=== PATIENT | female | born 1945 | race Hispanic/Latino ===

== ENCOUNTER 2018-09-12 07:23 | Day surgery (SDC) | payer OTHER ==
[2018-09-08 15:42] LABS: Absolute Lymphocytes (CBC) 1.8 K/uL (0.7-4.9); Absolute Monocytes 0.5 K/uL (0.1-1.3); Absolute Neutrophil 6.7 K/uL (1.8-8.0); Basophils % 1.3 % (0-1.3); Eosinophils % 4.2 % (0-4.4); Hematocrit 38.4 % (36.0-45.0); MPV 9.9 fL (7.6-11.3); Monocytes % 5.3 % (3.3-12.3); RBC Red Blood Cell Count 4.44 M/uL (3.86-4.86)
[2018-09-08 15:48] LABS: Potassium 4.4 mmol/L (3.5-5.1)
--- NOTE | 2018-09-08 15:48 | RAD REPORT ---
EXAM DESCRIPTION: RAD - Chest Pa And Lat (2 Views) - 09/08/2018 3:28 pm CLINICAL HISTORY: preop Chest pain. COMPARISON: CHEST SINGLE VIEW dated 01/05/2014 FINDINGS: The lungs are clear. The heart is mildly enlarged in size. No displaced fractures. IMPRESSION: Mild cardiomegaly.
[2018-09-08 15:54] LABS: ALT/SGPT 26 U/L (12-78); AST/SGOT 12 U/L (15-37); Albumin 3.8 g/dL (3.4-5.0); Alkaline Phosphatase 109 U/L (45-117); Amylase Level 62 U/L (25-115); Bilirubin Direct < 0.1 mg/dL (0-0.2); Bilirubin Total 0.3 mg/dL (0.2-1.0); Lipase 111 U/L (73-393); Protein, Total 7.9 g/dL (6.4-8.2)
--- NOTE | 2018-09-09 08:29 | EKG ---
Test Date: 2018-09-08 Test Time: 14:30:36 Stacking Machine Operator: ANGELIKA MEASUREMENT RESULTS: Intervals: Rate: 67 AK: 120 QRSD: 132 QT: 442 QTc: 467 [place]: P: 43 AK: 120 QRS: 58 T: 30 INTERPRETIVE STATEMENTS: Normal sinus rhythm Right bundle branch block Abnormal ECG Compared to ECG 01/05/2014 03:26:36 Myocardial infarct finding no longer present Electronically Signed On 09-09-18 08:28:26 CDT by Michael Worrell
--- OUTSIDE RECORDS SUMMARY | 2018-09-12 07:26 | XMS REPORT ---
:1945 Author Organization [employer] Care Team Providers Name Role Phone Pastor Dias Provider Role Unavailable Allergies, Adverse Reactions, Alerts Substance Reaction Event Type N.K.D.A. Info Not Available Non Drug Allergy Problems Problem Type Condition Code Onset Dates Condition Status Assessment Left hand pain M79.642 Active Assessment Trigger finger, left middle finger M65.332 Active Medications Medication Code System Code Instructions Start End Date Status Dosage Date Polymyxin [facility] 82682-256 Active not defined B-Trimethoprim 3-11 Pravastatin [facility] 77586-509 Active not defined Sodium 0-10 Meloxicam [facility] 50747-203 Active not defined 6-23 Ilevro [facility] 22476-746 Active not defined 0-07 Metformin HCl [facility] 96145-970 Active not defined 8-01 PrednisoLONE [facility] 81807-200 Active not defined Acetate 4-05 Lisinopril-Hydroc [facility] 94572-697 Active not defined hlorothiazide 2-01 Results No Known Results Summary Purpose eClinicalWorks Submission
--- OUTSIDE RECORDS SUMMARY | 2018-09-12 07:26 | XMS REPORT ---
[...] Instructions Start End Date Status Dosage Date Ilevro [facility] 57288-162 Active not defined 0-07 PrednisoLONE [facility] 27954-941 Active not defined Acetate 4-05 Meloxicam [facility] 49386-188 Active not defined 6-23 Metformin HCl [facility] 16181-330 Active not defined 8-01 Polymyxin [facility] 46973-236 Active not defined B-Trimethoprim 3-11 Pravastatin [facility] 28786-970 Active not defined Sodium 0-10 Lisinopril-Hydroc [facility] 82232-732 Active not defined hlorothiazide 2-01 Results No Known Results Summary Purpose eClinicalWorks Submission
[2018-09-12] MEDS ORDERED: CEFOXITIN/SWI 1gm 1 GM/10 ML SYR ONE (07:53)
[2018-09-12] MEDS ORDERED: NA CHLORIDE 0.9% 1,000 ML ONE (07:53)
[2018-09-12] MEDS ORDERED: GLYCOPYRROLATE 0.2 MG/ML SYR ONE ×2 (08:11)
[2018-09-12] MEDS ORDERED: MIDAZOLAM HCL 2 MG/2 ML INJ ONE (08:11)
[2018-09-12] MEDS ORDERED: LIDOCAINE 2% MPF 5 ML VIAL ONE (08:11)
[2018-09-12] MEDS ORDERED: PROPOFOL 200 MG/20 ML VIAL IV ONE (08:11)
[2018-09-12] MEDS ORDERED: FENTANYL CITR 250 MCG/5 ML ONE (08:13)
[2018-09-12] MEDS ORDERED: ONDANSETRON 4 MG/2 ML VIAL ONE (08:44)
[2018-09-12] MEDS ORDERED: NEOSTIGMINE 1 MG/ML -10 ML VIAL ONE (08:59)
[2018-09-12] MEDS ORDERED: ROCURONIUM 50 MG/5 ML VIAL IV ONE (08:59)
[2018-09-12] MEDS ORDERED: Mastisol Adhesive Liq ONE (09:39)
[2018-09-12 10:16] VITALS: O2SAT 96
[2018-09-12 10:45] VITALS: BP 129/54; TEMP 97.2
[2018-09-12] MEDS ORDERED: CODEINE 30MG/APAP 300MG TAB ONE (10:48)
--- NOTE | 2018-09-27 23:31 | OP ---
Date of Procedure: 09/13/2018 Surgeon: Hay Dawson MD Deputy Building Guard: OLLIE [place]. Preoperative Diagnosis: Symptomatic cholelithiasis. Postoperative Diagnosis: Symptomatic cholelithiasis. Procedure: Laparoscopic cholecystectomy. Anesthesia: General plus local. Specimen: Gallbladder. Indications: This is the case of a female who comes to us with above diagnosis. Fully explained the benefits, alternatives, and risks of laparoscopic, possible open cholecystectomy, which include but are not limited to infection, bleeding, damage to adjacent structures, anesthesia complication, milton docholithiasis, bile leak, pancreatitis, MA, and even . She also understands this may not relie ve any symptoms and she might need more than one surgical intervention. She understood, signed a con sent. Description Of Procedure: The patient was brought to the operating room, placed in supine position. Anesthesia was done without complication. Abdominal area was prepped and draped in a sterile fashio n. Marcaine 0.5% was injected for local anesthetic, followed by sharp incision of the skin in the in fraumbilical region. Incision was carried down to fascia, which was opened under direct vision. Per itoneum was encountered, opened under direct vision. Vicryl #1 placed inside the fascia. Tony tro car was carefully introduced. Pneumoperitoneum was obtained. I placed 3 more trocars, 5 mm each one of them, 1 in the epigastric area and 2 in the right upper quadrant using the same technique under d irect visualization. At that moment, I proceeded to put a grasper on the fundus of the gallbladder, another grasper in the infundibulum, and retracted the gallbladder in the inferolateral fashion expos ing the triangle of Calot and obtaining critical view of safety. The cystic duct and cystic artery w ere clearly isolated, free circumferentially, and a connection between those and the gallbladder was clearly identified. I proceeded to ligate those by using at least 3 clips proximal, 1 clip distal, l igation in middle. Same was done with the cystic artery. No bile leak. No bleeding. The gallbladd er was removed from liver using Bovie cauterizer and removed from the abdominal cavity using EndoCatc h through the umbilical incision. The area was inspected once again. No bile leak. No bleeding. A t that moment, I proceeded to remove the trocars under direct vision. Deflated the pneumoperitoneum. Closed the fascia with #1 Vicryl. Irrigated the subcutaneous tissue, closed with 3-0 chromic, and skin was approximated. Sponge count and instrument counts were correct. The patient tolerated the p rocedure well. The patient was sent to recovery in stable condition. GAIL/JUNIOR Voice ID: [id number] Report ID: [id number]
--- NOTE | 2018-09-27 23:36 | DS ---
Date of Discharge: 09/12/2018 Diagnosis: Symptomatic cholelithiasis. Procedure: Laparoscopic cholecystectomy. Disposition: Home. Activity: As tolerated. No heavy lifting. Followup: Follow up in my office 1 week. Call for appointment on [phone]. Keep area dry for 48 ho urs, then may shower. Medications: For medications, see orders. GAIL/JUNIOR Voice ID: [id number] Report ID: [id number]
== END 2018-09-12 11:50 | disposition home or self-care (01) ==
LOC: OR 07:23
PROVIDERS: ATTEND Surgery
PROC: 0FT44ZZ Resection of Gallbladder, Percutaneous Endoscopic Approach (ICD-10-PCS; principal; 2018-09-12 08:30)
DX: K80.20 Calculus of gallbladder without cholecystitis without obstruction (principal); E11.9 Type 2 diabetes mellitus without complications; I10 Essential (primary) hypertension; Z79.4 Long term (current) use of insulin; Z79.1 Long term (current) use of non-steroidal anti-inflammatories (NSAID); Z79.899 Other long term (current) drug therapy
CPT/HCPCS: 47562; 93005; 85025; 80048; 36415; 82150; 82962 ×2; 80076; 88304; 83690; 71046; J2704; J2710; J2250; J3010; J7030; J2405

== ENCOUNTER 2020-12-09 06:44 | Day surgery (SDC) | payer OTHER ==
[2020-12-05 12:57] LABS: Absolute Lymphocytes (CBC) 2.2 K/uL (0.7-4.9); Basophils % 0.3 % (0-1.3); Hematocrit 35.3 % (36.0-45.0); Lymphocytes % 23.8 % (15.3-44.8); MPV 8.5 fL (7.6-11.3); RBC Red Blood Cell Count 4.11 M/uL (3.86-4.86)
[2020-12-05 13:00] LABS: Protime INR 0.93
--- NOTE | 2020-12-05 13:08 | RAD REPORT ---
EXAM DESCRIPTION: RAD - Chest Pa And Lat (2 Views) - 12/05/2020 12:56 pm CLINICAL HISTORY: preop, pending cardiac catheterization COMPARISON: September 2019 TECHNIQUE: Frontal and lateral views of the chest were obtained. FINDINGS: The lungs are fibrotic with the interstitial pattern matching comparison imaging. No new o r enlarging mass. No acute infiltrate. Hilar regions within normal range and stable. Diaphragm is fla ttened. Heart size is normal and central vasculature is within normal limits. No pleural effusion or pneumothorax seen. No acute bony finding noted. No aortic abnormality. IMPRESSION: No acute cardiopulmonary process. Fibrotic lung changes are present. No significant change from comparison study.
[2020-12-05 13:15] LABS: Potassium 4.3 mmol/L (3.5-5.1)
[2020-12-09] MEDS ORDERED: HEPA 1000U/500MLS 1,000 UNIT/500 ML BAG IV ONE (07:12)
[2020-12-09] MEDS ORDERED: LIDOCAINE 1% 20 ML MDV ONE (07:12)
[2020-12-09] MEDS ORDERED: FENTANYL CITR 100 MCG/2 ML ONE (07:17)
[2020-12-09] MEDS ORDERED: MIDAZOLAM HCL 2 MG/2 ML INJ ONE (07:17)
[2020-12-09] MEDS ORDERED: NA CHLORIDE 0.9% 0 ML ONE (07:18)
[2020-12-09] MEDS ORDERED: ATROPINE SULF 1 MG/10 ML SYR IV ONE (07:18)
[2020-12-09] MEDS ORDERED: NITROGLYCERIN 100 MCG/ML SYR (for cath lab use only) IV ONE (07:18)
[2020-12-09] MEDS ORDERED: NITROGLYCERIN/D5W 0 MG/0 ML BTL IV ONE (07:18)
[2020-12-09] MEDS ORDERED: NA CHLORIDE 0.9% 500 ML ONE (07:23)
--- NOTE | 2020-12-09 09:35 | OP ---
Date of Procedure: 12/09/2020 Surgeon: Gage Guerrero MD Solution Director: Mr. Mookie Alberto. The patient will remain in the hospital for 2 hours for bedrest after her Angio-Seal. I will see her in the office in the next 2 weeks after she goes home. Reason For Admission: The need for left heart catheterization, selective coronary arteriogram. Procedures Performed: Left heart catheterization, selective coronary arteriogram. Indication: Unstable angina. Ms. Juares is 75-year-old, had classic unstable angina symptoms, has a history of diabetes, dyslipidemia, and hypertension, insulin dependent. Procedure In Detail: The patient was brought to the wastewater analyst lab analyst today as an outpatient. She was preppe d and draped in the routine sterile fashion. She was given Versed and fentanyl for sedation. A 6-Fr ench sheath introduced in the right common femoral artery successfully. Angiography there was normal . Angio-Seal was used to close the case. Marc catheter left and right were used to do the diagno stic catheterization. She had diffuse plaquing, maybe 20% to 30% proximal LAD. She had a 90% ostial diagonal 2 from the LAD. The left main was normal. Her circumflex showed a normal circumflex. She had about 70% OM2 stenosis. This was very ostial. Small vessel nondominant. The RCA was a very la rge vessel with about a 70% very distal PDA stenosis. The patient tolerated the procedure well. The re were no complications. Blood Loss: 5 mL. Postoperative Diagnosis: Moderate coronary artery disease. Plan: Plan is for medical therapy. Anesthesia: Total conscious sedation was 45 minutes. ELIZABETH/JUNIOR Voice ID: [id number] Report ID: [id number]
[2020-12-09 11:07] VITALS: BP 148/68; TEMP 97.7; O2SAT 95
== END 2020-12-09 10:30 | disposition home or self-care (01) ==
LOC: CCL 06:44
DX: I25.110 Atherosclerotic heart disease of native coronary artery with unstable angina pectoris (principal); I10 Essential (primary) hypertension; E78.5 Hyperlipidemia, unspecified; E11.9 Type 2 diabetes mellitus without complications; Z20.822 Contact with and (suspected) exposure to COVID-19; Z79.4 Long term (current) use of insulin
CPT/HCPCS: 93005; 85025; 80048; 36415; 85610; 82947 ×2; 85730; 71046; 93454; U0003; C1893; C1760; J2250; J3010; J7040; J1644; J0583

== ENCOUNTER 2024-06-08 08:22 | Day surgery (SDC) | payer OTHER ==
[2024-06-07 13:47] LABS: Absolute Basophils 0.1 K/uL (0-0.5); Absolute Eosinophils 0.5 K/uL (0-0.5); Absolute Lymphocytes (CBC) 2.2 K/uL (0.7-4.9); Absolute Monocytes 0.7 K/uL (0.1-1.3); Absolute Neutrophil 7.3 K/uL (1.8-8.0); Basophils % 1.2 % (0-1.3); Eosinophils % 4.2 % (0-4.4); Hematocrit 35.8 % (36.0-45.0); Hemoglobin 11.8 g/dL (12.0-15.0); Lymphocytes % 20.6 % (15.3-44.8); MCH 27.9 pg (27.0-35.0); MCHC 32.9 g/dL (32.0-36.0); MPV 9.4 fL (7.6-11.3); Monocytes % 6.1 % (3.3-12.3); Neutrophils % 67.9 % (41.7-73.7); Nucleated Red Blood Cells % 0.1 % (0-0); Platelets 279 thou/uL (152-406); RBC Red Blood Cell Count 4.21 M/uL (3.86-4.86); Red Cell Distribution Width 15.1 % (12.1-15.2)
[2024-06-07 13:48] LABS: Anion Gap 7.7 mEq/L (5.0-15.0); Potassium 4.7 mEq/L (3.5-5.1)
[2024-06-07 13:51] LABS: PT Prothrombin Time 10.2 SECONDS (9.4-12.5); Protime INR 0.97
[2024-06-07 13:52] LABS: Specific Gravity 1.012 (1.005-1.030); Transitional Epithelial <5 /HPF (None Seen); Urine Bacteria None Seen /HPF (<20); Urine Bilirubin NEGATIVE (Negative); Urine Blood Negative (Negative); Urine Clarity Extremely Turbid (Clear); Urine Color Light-Yellow (Yellow); Urine Culture Reflex Order NOT NEEDED; Urine Glucose NEGATIVE (Negative); Urine Ketones NEGATIVE (Negative); Urine Microscopic Reflex YN ORDER UMIC; Urine Mucus Slight /HPF (None Seen); Urine Nitrite NEGATIVE (Negative); Urine Protein 1+ (Negative); Urine RBC <5 /HPF (None Seen); Urine Urobilinogen Normal (Normal); Urine WBC <5 /HPF (<5)
[2024-06-08] MEDS: CEFAZOLIN SODIUM 1 GM/VIAL ONE ×2 (08:52→09:00)
[2024-06-08] MEDS: NA CHLORIDE 0.9% 100 ML ONE (09:00)
[2024-06-08] MEDS: LIDOCAINE HCL/EPINEPHRINE 20 ML MDV ONE (09:00)
[2024-06-08] MEDS ORDERED: dexAMETHasone 10 MG/ML VIAL ONE (09:03)
[2024-06-08] MEDS ORDERED: LIDOCAINE 2% MPF 5 ML VIAL ONE (09:03)
[2024-06-08] MEDS ORDERED: ROCURONIUM 50 MG/5 ML VIAL IV ONE (09:03)
[2024-06-08] MEDS ORDERED: ONDANSETRON 4 MG/2 ML VIAL ONE (09:03)
[2024-06-08] MEDS ORDERED: KETOROLAC 30 MG/ML INJ ONE (09:03)
[2024-06-08] MEDS ORDERED: FENTANYL CITR 100 MCG/2 ML ONE ×2 (09:03→12:06)
[2024-06-08] MEDS ORDERED: propofoL 200 MG/20 ML VIAL IV ONE (09:03)
[2024-06-08] MEDS: CEFAZOLIN SODIUM 2 GM/VIAL ONE (09:46)
[2024-06-08] MEDS ORDERED: NS 0.9% VIAL 20 ML ONE (09:58)
[2024-06-08] MEDS ORDERED: VECURONIUM 10 MG/VIAL IV ONE ×2 (10:16→11:53)
[2024-06-08] MEDS ORDERED: NS 0.9% VIAL 10 ML ONE (10:17)
[2024-06-08] MEDS: VASOPRESSIN 20 UNIT/ML VIAL ONE (10:29)
[2024-06-08] MEDS: NA CHLORIDE 0.9% 1,000 ML ONE ×2 (11:35→11:37)
[2024-06-08] MEDS ORDERED: GLYCOPYRROLATE 0.2 MG/ML SYR ONE (12:12)
[2024-06-08] MEDS ORDERED: PROMETHAZINE INJ 25 MG/ML AMP IV PRN (13:07)
[2024-06-08] MEDS ORDERED: PROMETHAZINE 25 MG TABLET PO PRN (13:08)
[2024-06-08] MEDS: HYDROMORPHONE HCL 1 MG/ML INJ ONE (13:32)
[2024-06-08] MEDS: MORPHINE 2 MG/ML SYR IV PRN (15:42)
[2024-06-08 16:13] VITALS: BMI 37.5
--- NOTE | 2024-06-08 22:20 | OP ---
Date of Procedure: 06/08/2024 Surgeon: Karla Henson MD Banking Manager: Ania Harrison. Preoperative Diagnoses: Anterior wall prolapse, stage I; stage II posterior wall prolapse; stress ur inary incontinence. Postoperative Diagnoses: Stage II posterior wall prolapse, posterior and apical enterocele, vaginal wall prolapse, perineal body defect, stress urinary incontinence, small anterior defect was negligibl e after repair of the posterior wall and the vault. Procedures Performed: 1. Vaginal bilateral sacrospinous ligament fixation, colpopexy via posterior approach. 2. Posterior wall and enterocele repair with biologic graft augmentation. 3. Perineal raphe. 4. Midurethral bulking with Bulkamid and cystoscopy. Estimated Blood Loss: 75. Urine Output: 100 Specimens: No specimens. Complications: No complications. Drains: Novoa catheter and vaginal packing. A 12-Macanese Novoa was left in place. Findings: Pop-Q -2 -2 -4, 4.5, moderate 5-6, 0, 0, NA. Cystoscopy showed patent bilateral ureters. Rectal exam was negative at the end of the procedure and a 12-Macanese Novoa was left carefully insert ed after the bulking and 1 mL of the Bulkamid implant was used. Implants: Bulkamid, 8 x 6 Coloplast [place] Dermis graft. Indications: The patient is a 78-year-old lady with severe urinary urgency and urge incontinence sym ptoms with vaginal bulge symptoms, constipation, and recurrent urinary tract infections. She had rep air of the anterior wall and hysterectomy in 2004 at [facility] and slowly felt that her prolapse has signi ficantly worsened overtime. She was offered both a pessary as well as surgical repair and after she had medical clearance from her pure pak machine operator and mud jack nozzle worker as well as primary care provider, then we scheduled her surgery, as she wanted to proceed with surgical repair. Her bladder was evaluated w ith a cystoscopy, which did not show any foreign body, tumor, or stones. Her urodynamics showed pote ntial stress urinary incontinence. Also, significant overactive bladder noted, so after the entire e valuation, we discussed both the vaginal repair and urethral bulking procedure instead of a sling, as her vaginal wall was extremely short and she was consented for an anterior-posterior wall prolapse r epair, biologic graft augmentation as needed, and then urethral bulking procedure. Description Of Procedure: She was re-consented in the preoperative area. Her daughter had a signifi cant number of questions that were all answered to her satisfaction and then she was taken back to OR . 2 g of Ancef was given. General anesthesia was given. She was placed in a dorsal lithotomy posit ion using Gagandeep stirrups. Lower abdomen, thighs, vulva, vagina, and perineum were prepped and draped in a sterile fashion using Betadine. The Pop-Q was done while the patient was under anesthesia and her most significant prolapse was her vault as well as the posterior enterocele and posterior wall de fect. The anterior wall was significantly short, not more than 4 cm and this was likely postop from her previous procedure. On examination of the posterior wall, there was a significant enterocele at the apex as well as the proximal posterior wall and then on measuring the posterior wall itself, it w as at least 5-6 cm long. Now, the perineal body was not completely disrupted, but there was a modera te defect and the fixation for the wall would be extremely difficult due to the short vagina from an anterior approach; and therefore, the plan was made to do the sacrospinous fixation with a posterior approach and assess the anterior wall for repair if needed after the posterior repair and vault fixat ion. Then, once all this was planned, then I started the procedure by placing the Goltry ring for needlepoint retractors. Novoa catheter draining the bladder, which was then clamped and retracted s uperiorly. A triangular incision was made on the perineum. Then, another straight incision through the lower 2 cm of the posterior wall and then a small oval incision on the midsection of the posterio r wall another 2 cm. Vaginal epithelium was minimally excised only to gain access to the posterior c ompartment. Then, the perineal body area was dissected and and laid down. Then, the poste rior wall fascia was dissected away from the vaginal epithelium as well as underlying tissues and sup eriorly the posterior enterocele was and opened up. All the way to the vault, the dissecti on was performed and both of the lateral vaginal cuff anchoring tissue was carefully picked up and ma de sure that dissection was performed carefully without any injury to the anterior compartment or the bowel at the vault. Once the enterocele was completely dissected, then I went on to dissect the lat eral and proximal pararectal spaces in order to reach the sacrospinous ligament. Bilateral sacrospinous fixation, colpopexy: The ischial spine was palpated on the left first, then s weeping medial and posterior to the ischial spine, the sacrospinous ligament was cleared up and the r ectum was dissected medially and the ligament exposed. On the right side, there was much more scar a nd once I was able to open up into the pararectal space on the right side, then the ischial spine was palpated and here there appeared to be significant scar once I got through the fascia. I opened up the ischial spine, then sweeping medially and posteriorly, the sacrospinous ligament was cleared up a nd the rectum was swept medially. Once both of these ligaments were exposed, 2 Prolene sutures were placed, one on each in the mid ligament on the anterior surface without encircling the ligament and h eld on retractors. In the end when the graft was attached, the sutures were tied on the ligament on both sides with a very good lift. Biologic graft augmented posterior wall repair/enterocele repair: Enterocele was dissected properly; and therefore, 3-0 Monocryl was used to make a pursestring suture to reduce the vault enterocele and then the rest of the enterocele in the posterior wall was reduced properly and the posterior wall fa scia was sutured from [id number] using a 2-0 PDS in a continuous running fashion all the way down t o the area of the perineum. Once this suture was ended, then I went back to the graft augmented post erior repair. Posterior repair with graft: The PDS 2-0 sutures were taken and one was placed in the mid proximal p ortion of the posterior wall. The suture was taken all the way from the inner aspect of the vaginal epithelium all the way through the vaginal epithelium in the vaginal canal and then back down into th e rectovaginal space. Then, this was held on a clamp, a suture on either sides of this 1 cm apart we re taken through the entire thickness of the vaginal wall and left in the rectovaginal space. Once a ll these 3 midline proximal sutures that are to anchor the midportion of the graft to the vault as we ll as the posterior proximal vaginal wall, the biologic graft was then taken and shaped and fashioned into a T with a 3 cm proximal portion, which was a wider trapezoid and the lower [address] left dylan ed to a 3 cm width in the midline. Then, this Y-shaped graft was soaked according to the package dir ections and brought in. The proximal 3 central PDS sutures were then anchored to the graft. Then, b oth of the sacrospinous Prolene sutures were anchored and tied down. The distal portion of the graft was laid in the midline and maybe half a centimeter was trimmed. Then, a continuous running 2-0 PDS was used to close the lateral and distal most parallel wall as well as on the opposite side to tethe r the graft properly to the rectovaginal septum. This is also made sure that it was attached to the perineal body as well. The vaginal wall was then closed with a continuous running 2-0 Vicryl suture. Perineal body repair and perineorrhaphy: This was done with a continuous running 2-0 Vicryl suture. Then, vaginal epithelium was closed with a continuous horizontal mattress. 2-0 Vicryl and 3-0 Vicry l were placed in a bbjcyb-gu-oplpo fashion right at the vestibule to bring the epithelium together wi thout any gaps. Rectal exam was negative. No perforation at the level of the sacrospinous fixation or any of the posterior compartment repair. After gloves were changed, urethral bulking was performed after a cystoscopy: Cystoscopy was perform ed with a 17-Macanese sheath, 30-degree lens, normal saline. Excellent jets of urine from both ureteri c orifices were noted. No evidence of any trauma to the bladder or foreign body in it. Then, the bl adder was completely drained. Urethral bulking was performed by taking the bulking sheath and using a pediatric cystoscope on a str [place] dribble of normal saline stream, and the sheath was entered all the way to the internal meatus. Then, the needle was extended 2 cm into the bladder, then pulled back to the mid urethra at least 1.5 to 2 cm distal to the internal meatus. Here, 4 injections were performed at 5 o'clock, 2 o'clock, 1 1 o'clock, and 8 o'clock positions and an even amount of 2.5 mL was injected in each of the sites. T here was excellent coaptation and there was no leak from the bladder. The cystoscope was removed, an d a 12-Macanese Novoa was gently passed through the urethra into the bladder. Then, it was attached to a drainage bag. Vaginal packing was placed. I ended the procedure, as there was no need for an ant erior wall prolapse. This appeared to be well reduced and if I intended to do any anterior repair, t his would put excessive tension on the posterior fixation, so this was left in place without any furt her repair. She was recovered from anesthesia after instrument, needle, and sponge counts x3 were co rrect in this case. The patient tolerated the procedure well. She was recovered from anesthesia in the operating room and taken to the PACU in stable condition. She will be admitted on the floor for voiding trials tomorrow and vaginal pack removal and will be discharged home with a 12-Macanese Novoa i f she is unable to void. She has an appointment in 3 days for a voiding trial if she goes home with the catheter and then 1-week and 6-week postop appointments. All instructions given and placed in e chart at [facility]. ILEANA/JUNIOR Voice ID: [id number] Report ID: [id number]
[2024-06-08] MEDS ORDERED: GLUCAGON 1 MG/VIAL IM PRN (23:24)
[2024-06-08] MEDS ORDERED: D50W 25 GM/50 ML SYRINGE IV PRN (23:24)
--- NOTE | 2024-06-08 23:29 | P.CNS ---
Date of Consult: 06/08/24 Patient seen by me after bladder prolapse procedure with urology. She has a history of type 2 diabetes mellitus, hypertension, hyperlipidemia and chronic pain. Patient tolerated her procedure well. Medicine was consulted for medical management. Her medications have been reviewed and resumed. Review of system: Comprehensive review of system was conducted. Review of system unremarkable except for HPI above Physical exam General: No acute distress, morbidly obese HEENT: Head atraumatic/normocephalic. EOM intact Pulm: Lungs are clear to auscultations CVS: Normal S1-S2. Murmur heard. Regular rate Abdomen: Obese abdomen Extremities: Without edema Skin: Warm and well-perfused Neuro: Grossly intact Psych: Mood and affect appropriate Assessment and plan This is a 78-year-old female recovering after bladder prolapse procedure. She is hemodynamically stable. Medicine was consulted for medical management. She is hyperglycemic at this time Type 2 diabetes mellitus Hypertension Hyperlipidemia Plan: Resume home regiment of insulin. She will get long-acting into diet Continue sliding scale Resume antihypertensives Pravastatin resumed as well She is also on a few multivitamins which have been resumed.
[2024-06-08] MEDS ORDERED: D10W 125 ML IV PRN (23:34)
[2024-06-09] MEDS: INSULIN NPH (HUMAN) 100 UNITS/ML SQ SCH ×2 (00:16→20:55)
[2024-06-09] MEDS: ECHINACEA PO SCH (08:32)
[2024-06-09] MEDS: CINNAMON BARK 500 MG PO SCH (08:32)
[2024-06-09] MEDS: ASCORBIC ACID 500 MG TABLET PO SCH (08:33)
[2024-06-09] MEDS: METOPROLOL XL 25 MG TAB PO SCH (08:33)
[2024-06-09] MEDS: MELOXICAM 7.5 MG TAB PO SCH (08:34)
[2024-06-09] MEDS: hydroCHLOROthiazide 25 MG TAB PO SCH (08:34)
[2024-06-09] MEDS: ACETAMINOPHEN 500 MG TAB PO PRN (08:34)
[2024-06-09] MEDS: lisinopriL 20 MG TAB PO SCH (08:34)
[2024-06-09] MEDS: CYANOCOBALAMIN 1,000 MCG TAB PO SCH (08:34)
[2024-06-09] MEDS: VITAMIN D 5,000 UNIT CAP PO SCH (08:35)
[2024-06-09] MEDS: METFORMIN HCL 500 MG TAB PO SCH (08:35)
[2024-06-09] MEDS: INSULIN REGULAR (HUMAN) 100 UNIT/ML SQ SCH ×2 (08:36→16:57)
[2024-06-09] MEDS ORDERED: HYDRALAZINE HCL 20 MG/ML VIAL IV PRN (13:29)
--- NOTE | 2024-06-09 13:38 | P.PN ---
Subjective Date of Service: 06/09/24 Subjective: New changes She is complaining of pain at operation site, unable to urinate. Denied any chest pain or headache or nausea and vomiting. Review of Systems Other: Consitutional; fever(-), chills (-), rigor(-), night sweat(-), unintentional weight loss(-), malaise (-) HEENT; diplopia (-), rhinorrhea (-), epistaxis (-), otorrhea (-), otalgia (-) Respiratory; shortness of breath (-), wheezing (-), cough (-), sputum (-), pleuritic chest pain (-) Cardiovascular; chest pain (-), peripheral edema (-), paroxysmal nocturnal dyspnea (-), orthopnea (-) Gastrointestinal; nausea (-), vomiting (-), abdominal pain (-), diarrhea (-), constipation (-), melena (-), hematochezia (-) Genitourinary; urinary frequency (-), dysuria (-), urgency (-), flank pain (-), gross hematuria (-), incontinence (-), urinary retention (+) Skin; rash (-), pruritus (-) 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 General: Obese, not acutely ill looking, in no apparent distress,. HEENT: Normocephalic, atraumatic, nonicteric sclera, nonanemic conjunctive. Neck: Supple, without JVD or goiter or thyroid mass. Respiratory: Normal breathing effort, clear to auscultation bilaterally, no crackles no wheezing or rhonchi. Cardiovascular: Regular rate and rhythm, S1, S2 normal, no murmur no gallop. Gastrointestinal: Normal bowel sounds, distended, nontender, No ascites, , No masses, no hepatosplenomegaly. Extremities : No clubbing, No peripheral edema,. Integumentary: No rashes, petechia, suspected lesions. Lymphatics: No axilla or cervical lymphadenopathy. Neurology; alert awake oriented x3, no focal neurologic deficit, Assessment And Plan - Plan This is 78 years old female patient with past medical history notable for obesity, type 2 diabetes on insulin and metformin, hypertension, chronic pain who underwent cystoscopy and robotic repair of vagina or bladder prolapse on June 08, 2024. Patient is being admitted for postoperative care, IM is consulted for postoperative management 1. Postoperative pain Postoperative pain is not well-controlled, continue morphine IV as needed, I will add Tylenol 3 #2 uncontrolled postoperative hypertension Secondary to uncontrolled pain, her home hypertensive regimen resumed, I will add IV hydralazine as needed 3. Uncontrolled type 2 diabetes Random blood sugar over 200, I will resume metformin 1 g twice daily in addition to NPH 40 twice daily and RI 20 twice daily Okay to discharge home once pain is reasonably controlled after urologic clearance for discharge
[2024-06-09] MEDS: ATORVASTATIN 10 MG TAB PO SCH (20:54)
[2024-06-09] MEDS: ASPIRIN 81 MG CHEWABLE TABLET PO SCH (20:55)
[2024-06-09] MEDS: CODEINE 30MG/APAP 300MG TAB PO PRN (22:01)
[2024-06-09 22:16] VITALS: O2SAT 96
[2024-06-10 08:24] LABS: Absolute Basophils 0.1 K/uL (0-0.5); Absolute Eosinophils 0.5 K/uL (0-0.5); Absolute Lymphocytes (CBC) 2.4 K/uL (0.7-4.9); Absolute Monocytes 0.6 K/uL (0.1-1.3); Absolute Neutrophil 6.4 K/uL (1.8-8.0); Basophils % 1.4 % (0-1.3); Eosinophils % 4.5 % (0-4.4); Hematocrit 32.6 % (36.0-45.0); Hemoglobin 10.8 g/dL (12.0-15.0); Lymphocytes % 24.2 % (15.3-44.8); MCH 28.4 pg (27.0-35.0); MPV 9.6 fL (7.6-11.3); Monocytes % 6.4 % (3.3-12.3); Neutrophils % 63.5 % (41.7-73.7); Platelets 257 thou/uL (152-406); RBC Red Blood Cell Count 3.79 M/uL (3.86-4.86)
[2024-06-10 08:37] LABS: Anion Gap 10.2 mEq/L (5.0-15.0); Potassium 4.2 mEq/L (3.5-5.1)
--- NOTE | 2024-06-10 10:00 | P.PN ---
Subjective Date of Service: 06/10/24 Subjective: Improving Patient says that she is doing better, postoperative pain is improving, tolerating oral diet well without any nausea and vomiting. She is supposed to go home or with her Novoa catheter. Review of Systems Other: Consitutional; fever(-), chills (-), rigor(-), night sweat(-), unintentional weight loss(-), malaise (-) HEENT; diplopia (-), rhinorrhea (-), epistaxis (-), otorrhea (-), otalgia (-) Respiratory; shortness of breath (-), wheezing (-), cough (-), sputum (-), pleuritic chest pain (-) Cardiovascular; chest pain (-), peripheral edema (-), paroxysmal nocturnal dyspnea (-), orthopnea (-) Gastrointestinal; nausea (-), vomiting (-), abdominal pain (-), diarrhea (-), constipation (-), melena (-), hematochezia (-) Genitourinary; urinary frequency (-), dysuria (-), urgency (-), flank pain (-), gross hematuria (-), incontinence (-) Skin; rash (-), pruritus (-) [employer]; headache (-), paresthesia (-), numbness (-), paralysis (-) Physical Examination - Vital Signs Temperature: 97.8 F Blood Pressure: 198/72 Pulse: 70 Respirations: 13 Pulse Ox (%): 95 - Physical Exam Other Physical/Emotional Findings: - Physical Exam. General: Obese, not acutely ill looking, in no apparent distress,. HEENT: Normocephalic, atraumatic, nonicteric sclera, nonanemic conjunctive. Neck: Supple, without JVD or goiter or thyroid mass. Respiratory: Normal breathing effort, clear to auscultation bilaterally, no crackles no wheezing or rhonchi. Cardiovascular: Regular rate and rhythm, S1, S2 normal, no murmur no gallop. Gastrointestinal: Normal bowel sounds, distended, nontender, No ascites, , No masses, no hepatosplenomegaly. Extremities : No clubbing, No peripheral edema,. Integumentary: No rashes, petechia, suspected lesions. Lymphatics: No axilla or cervical lymphadenopathy. Neurology; alert awake oriented x3, no focal neurologic deficit, - Studies Laboratory Data (last 24 hrs) 06/10/24 06/10/24 07:45 07:45 WBC 10.00 Hgb 10.8 L Hct 32.6 L Plt Count 257 Sodium 136 Potassium 4.2 BUN 22 H Creatinine 0.91 Glucose 256 H Assessment And Plan - Plan This is 78 years old female patient with past medical history notable for obesity, type 2 diabetes on insulin and metformin, hypertension, chronic pain who underwent cystoscopy and robotic repair of vagina or bladder prolapse on June 08, 2024. Patient is being admitted for postoperative care, IM is consulted for postoperative management 1. Postoperative pain Postoperative pain is now controlled, continue Tylenol 3 and morphine IV as needed, #2 uncontrolled postoperative hypertension Secondary to uncontrolled pain, her home hypertensive regimen resumed, IV hydralazine as needed 3. Uncontrolled type 2 diabetes Random blood sugar over 200, metformin added, insulin titrated to NPH 44 twice daily, RI 22 twice daily by 10% yesterday. Will titrate up every 2 or 3-day Okay to discharge home once pain is reasonably controlled after urologic clearance for discharge
[2024-06-10 12:50] VITALS: TEMP 98.4
[2024-06-10 17:20] VITALS: BP 134/66
== END 2024-06-10 17:51 | disposition home or self-care (01) ==
LOC: OR 08:22 → SUATTDRO 08:22 → 2ND 13:08 → OR 06-10 17:51
PROVIDERS: ATTEND Internal Medicine
PROC: 0JUC0JZ Supplement of Pelvic Region Subcutaneous Tissue and Fascia with Synthetic Substitute, Open Approach (ICD-10-PCS; 2024-06-08)
PROC: 0USG0ZZ Reposition Vagina, Open Approach (ICD-10-PCS; 2024-06-08)
PROC: 0TVD8ZZ Restriction of Urethra, Via Natural or Artificial Opening Endoscopic (ICD-10-PCS; 2024-06-08)
PROC: 0JUC0JZ Supplement of Pelvic Region Subcutaneous Tissue and Fascia with Synthetic Substitute, Open Approach (ICD-10-PCS; principal; 2024-06-08 09:30)
DX: N99.3 Prolapse of vaginal vault after hysterectomy (principal); N81.12 Cystocele, lateral; N39.3 Stress incontinence (female) (male); N81.2 Incomplete uterovaginal prolapse
CPT/HCPCS: 93005; 85025 ×2; 81001; 80048 ×2; 36415 ×2; 86900; 86850; 85610; 86901; 82947 ×7; 85730; 57260; 57267; 57282; 51715; J1815; A4216 ×2; J2704; J2003; J3010 ×2; J1100; J2270 ×2; J1171; J2405; J7030 ×2; J0690 ×2; A4314

== ENCOUNTER 2024-12-15 07:00 | Day surgery (SDC) | payer OTHER ==
--- NOTE | 2024-12-11 11:08 | RAD REPORT ---
EXAM: Chest Pa And Lat (2 Views) HISTORY: 79 years Female pre-op pending trigger finger release COMPARISON: 05/13/2021 FINDINGS: LUNGS/PLEURA: The lungs are clear. No pleural effusions or pneumothorax. No pulmonary edema. CARDIAC/MEDIASTINUM: The cardiac silhouette is within normal limits. UPPER ABDOMEN: No significant abnormality. BONES: No acute abnormality. LINES/TUBES/OTHER: N/A IMPRESSION: No evidence of acute cardiopulmonary disease.
[2024-12-11 11:46] LABS: Absolute Lymphocytes (CBC) 2.4 K/uL (0.7-4.9); Hematocrit 36.7 % (36.0-45.0); Hemoglobin 11.9 g/dL (12.0-15.0); MCH 27.8 pg (27.0-35.0); MCHC 32.3 g/dL (32.0-36.0); MCV 85.9 fL (80-100); MPV 9.6 fL (7.6-11.3); Nucleated RBC Absolute Count 0.0 (0-0); Nucleated Red Blood Cells % 0.0 % (0-0); RBC Red Blood Cell Count 4.27 M/uL (3.86-4.86); White Blood Count 8.80 thou/uL (4.3-10.9)
[2024-12-11 11:51] LABS: PT Prothrombin Time 11.0 SECONDS (10-13.0); PTT, Activated Partial Thromb 33.5 SECONDS (27.2-37.4); Protime INR 0.97
[2024-12-11 11:58] LABS: Anion Gap 8.8 mEq/L (5.0-15.0); BUN Blood Urea Nitrogen 19.0 mg/dL (7-18); Glucose Level 123.0 mg/dL (74-106); Potassium 4.8 mEq/L (3.5-5.1)
[2024-12-15] MEDS ORDERED: NA CHLORIDE 0.9% 1,000 ML ONE (07:19)
[2024-12-15] MEDS ORDERED: ONDANSETRON 4 MG/2 ML VIAL ONE (07:44)
[2024-12-15] MEDS ORDERED: FENTANYL CITR 100 MCG/2 ML ONE (07:44)
[2024-12-15] MEDS ORDERED: LIDOCAINE 2% MPF 5 ML VIAL ONE (07:44)
[2024-12-15] MEDS: CEFAZOLIN SODIUM 2 GM/VIAL ONE (08:00)
[2024-12-15] MEDS: BUPIVACAINE 0.25% PF 10 ML VIAL ONE (08:36)
--- NOTE | 2024-12-15 09:15 | P.BOP ---
Preoperative diagnosis: Right index, middle, ring, small finger trigger digits Postoperative diagnosis: Same Primary procedure: Right index, middle, ring, small finger A1 shruthi releases Mangle Roll Operator: NONE,NONE Estimated blood loss: 5 cc Specimen: None Findings: See dictation Anesthesia: General Complications: None Implants: None Fluids & blood products: Per anesthesia record Transferred to: Recovery Room Condition: Good
--- NOTE | 2024-12-15 09:19 | P.OP ---
Preoperative diagnosis: Right index, middle, ring, small finger trigger digits Postoperative diagnosis: Same Primary procedure: Right index, middle, ring, small finger A1 shruthi releases Anesthesia: General Estimated blood loss: 5 cc Specimen: None Findings: See dictation Operative Technique: Indication procedure: Cindy is a 79-year-old female presented to clinic with signs symptoms and physical exam findings consistent with right index, middle, ring, small finger trigger digits. Patient was initially scheduled for middle, ring, small finger A1 shruthi releases however she reports increased pain and triggering to the index finger. After discussion with the patient and her family we elected to add the index finger A1 shruthi release to the surgery. Patient failed conservative treatment measures. Given the continued pain and difficulties with activities of daily living and elected proceed with operative treatment including A1 shruthi releases. Description of procedure: After informed consent was obtained, the patient was identified in the preoperative holding area and the index, middle, ring, small fingers were marked. Patient was then brought back to the operating room, transferred to the operating table in supine fashion and placed under general anesthesia. The right upper extremity was then prepped and draped in usual sterile fashion. A timeout was initiated. The correct patient and procedure were confirmed and identified. The patient did receive her preoperative prophylactic antibiotics. The right upper extremity was exsanguinated using an Esmarch and the tourniquet was inflated to 250 mmHg. Approximately 1.5 cm longitudinal incision was made over the A1 shruthi of the small finger. Dissection was then taken down the flexor tendon sheath. It was split in line with the incision. A small portion of the flexor tendon sheath was excised to minimize risk of recurrence. The flexor tendon was then brought out through the incision and there was full excursion of the tendon without triggering noted. The wound was then irrigated thoroughly with normal saline. Approximately 1.5 cm longitudinal incision was made over the A1 shruthi of the ring finger. Dissection was then taken down the flexor tendon sheath. It was split in line with the incision. A small portion of the flexor tendon sheath was excised to minimize risk of recurrence. The flexor tendon was then brought out through the incision and there was full excursion of the tendon without triggering noted. The wound was then irrigated thoroughly with normal saline. Approximately 1.5 cm longitudinal incision was made over the A1 shruthi of the middle finger. Dissection was then taken down the flexor tendon sheath. It was split in line with the incision. A small portion of the flexor tendon sheath was excised to minimize risk of recurrence. The flexor tendon was then brought out through the incision and there was full excursion of the tendon without triggering noted. The wound was then irrigated thoroughly with normal saline. Approximately 1.5 cm longitudinal incision was made over the A1 shruthi of the index finger. Dissection was then taken down the flexor tendon sheath. It was split in line with the incision. A small portion of the flexor tendon sheath was excised to minimize risk of recurrence. The flexor tendon was then brought out through the incision and there was full excursion of the tendon without triggering noted. The wound was then irrigated thoroughly with normal saline. The skin was approximated using a 5-0 Prolene. Sterile dressings were applied. The tourniquet was let down and the patient was awakened and transferred to PACU in stable condition. Postoperative plan: The patient will follow-up in my clinic in 10 days for wound check and suture removal. The patient will be nonweightbearing of her right upper extremity. Complications: None Implants: None Fluids & blood products: Per anesthesia record Transferred to: Recovery Room Condition: Good
[2024-12-15] MEDS: FENTANYL CITR 100 MCG/2 ML ONE (09:33)
[2024-12-15 10:49] VITALS: BP 144/66; TEMP 98.2; O2SAT 97
== END 2024-12-15 10:40 | disposition home or self-care (01) ==
LOC: OR 07:00
PROVIDERS: ATTEND Orthopaedic Surgery Sports Medicine
PROC: 0LN70ZZ Release Right Hand Tendon, Open Approach (ICD-10-PCS; principal; 2024-12-15 08:00)
DX: M65.331 Trigger finger, right middle finger (principal); M65.341 Trigger finger, right ring finger; M65.351 Trigger finger, right little finger; M65.321 Trigger finger, right index finger
CPT/HCPCS: 93005; 85025; 80048; 36415; 85610; 82947 ×3; 85730; 71046; 26055 ×4; J2704 ×2; J2003; J3010 ×2; J2405; J7030